=== PATIENT | female | born 2000 | race Caucasian/White ===

== ENCOUNTER 2024-12-14 00:10 | Inpatient (IN) | payer MEDICAID ==
[2024-12-14 00:23] VITALS: BMI 34.7
[2024-12-14] MEDS ORDERED: Lidocaine 1% (PF) 30 ML VIAL SC PRN (00:30)
[2024-12-14] MEDS ORDERED: Misoprostol 200 MCG TAB PR PRN (00:30)
[2024-12-14] MEDS ORDERED: Diphenoxylate HCl/Atropine Tablet PO PRN (00:30)
[2024-12-14] MEDS ORDERED: Methylergonovine 0.2 MG/ML VIAL IM PRN (00:30)
[2024-12-14] MEDS ORDERED: Acetaminophen 500 MG TAB PO PRN (00:30)
[2024-12-14] MEDS ORDERED: Tranexamic Acid 1,000 MG/10 ML VIAL IVP PRN (00:30)
[2024-12-14] MEDS ORDERED: hydrALAZINE 20 MG/ML VIAL SLOW IVP PRN ×2 (00:30→20:03)
[2024-12-14] MEDS ORDERED: Lactated Ringer's 1,000 ML IV SCH (00:30)
[2024-12-14] MEDS ORDERED: Carboprost 250 MCG/ML AMP IM PRN (00:30)
[2024-12-14] MEDS ORDERED: Oxytocin 30 units/NS 500 ML 500 ML IV SCH ×2 (00:30→20:03)
[2024-12-14 01:59] LABS: Hematocrit 39.7 % (34.9-44.5); Hemoglobin 13.5 g/dL (12.0-15.5); Mean Corpuscular Hemoglobin 31.6 pg (27.0-33.0); Mean Platelet Volume 10.5 fL (7.4-10.4); Platelet Count 261 10x3/uL (150-450); RBC Distribution Width 13.5 % (11.5-14.5); Red Blood Cell (RBC) Count 4.27 10x6/uL (3.90-5.03); White Blood Cell (WBC) Count 11.55 10x3/uL (3.5-10.5)
[2024-12-14 02:31] LABS: HBsAg Index 0.18 S/CO (0-0.99); Hep B Surf Ag - L&D Non-Reactive S/CO (NonReactive)
[2024-12-14 02:33] LABS: Syphilis Antibody Nonreactive (Nonreactive); Syphilis Antibody Index 0.05 S/CO (<1.00 Non-Reactive)
[2024-12-14] MEDS ORDERED: Bupivacaine PF 0.5% 30 ML VIAL ONE (02:33)
[2024-12-14] MEDS: Ondansetron PF 4 MG/2 ML Vial IVP PRN (03:57)
[2024-12-14] MEDS: Promethazine HCl 25 MG/ML VIAL IM PRN (07:56)
[2024-12-14] MEDS: fentaNYL 50 mcg/mL 1 mL Vial ONE (08:53)
[2024-12-14] MEDS ORDERED: Moisturizing Cream (Eucerin) 113 GM JAR TOP PRN (09:20)
[2024-12-14] MEDS ORDERED: Promethazine HCl 25 MG/ML VIAL IM PRN (09:20)
[2024-12-14] MEDS ORDERED: ePHEDrine Sulfate 50 MG/10 ML VIAL SLOW IVP PRN (09:20)
[2024-12-14] MEDS ORDERED: diphenhydrAMINE 50 MG/ML VIAL IVP PRN (09:20)
[2024-12-14] MEDS ORDERED: Naloxone HCl 0.4 mg/ml Vial IVP PRN ×2 (09:20)
[2024-12-14] MEDS ORDERED: Ondansetron PF 4 MG/2 ML Vial IVP PRN (09:20)
[2024-12-14] MEDS ORDERED: Lactated Ringer's 500 ML IV PRN (09:20)
[2024-12-14] MEDS ORDERED: Acetaminophen 325 MG TAB PO PRN (09:20)
[2024-12-14] MEDS ORDERED: Communication Order-Pharmacy FS SCH (09:30)
[2024-12-14] MEDS ORDERED: fentaNYL 2 mcg/Ropivacaine 0.2% Epidural 100 ML CADD EPIDURAL SCH (09:30)
[2024-12-14] MEDS: fentaNYL/Ropivacaine Epidural 100 ML ONE (10:25)
[2024-12-14] MEDS: Oxytocin 30 units/NS 500 ML 500 ML IV SCH (11:23)
[2024-12-14 15:48] LABS: Analyzer IN Cardio CS NICU; RapidComm Collect By cbn
[2024-12-14 15:51] LABS: Analyzer IN Cardio CS NICU; RapidComm Collect By cbn; pH (Cord, venous) 7.283 (7.250-7.350)
[2024-12-14] MEDS: Ibuprofen 800 MG TAB PO PRN (17:15)
[2024-12-14] MEDS ORDERED: Milk Of Magnesia 30 ML UDCUP PO PRN (20:03)
[2024-12-14] MEDS ORDERED: HYDROcodone/Acetaminophen 5/325 mg Tablet PO PRN ×2 (20:03)
[2024-12-14] MEDS ORDERED: Misoprostol 200 MCG TAB VAG PRN (20:03)
[2024-12-14] MEDS ORDERED: Bisacodyl 10 MG SUPP PR PRN (20:03)
[2024-12-14] MEDS ORDERED: Boostrix 0.5 ML (Tdap) VIAL (>/=7 yrs of age) IM ONE (20:03)
[2024-12-14] MEDS: Ferrous Sulfate 325 MG TAB PO SCH (20:30)
[2024-12-14] MEDS: Docusate 100 MG CAP PO SCH (21:22)
[2024-12-15] MEDS: Ibuprofen 800 MG TAB PO SCH (01:17)
[2024-12-15] MEDS: fentaNYL 50 mcg/mL 1 mL Vial SLOW IVP SCH (07:38)
[2024-12-15] MEDS: Prenatal Vitamin 1 TAB PO SCH (08:51)
[2024-12-15] MEDS: Benzocaine-Menthol 82.5 ML CAN TOP PRN (08:52)
[2024-12-15] MEDS: Ferrous Sulfate 325 MG TAB PO SCH (08:54)
[2024-12-16] MEDS ORDERED: Lidocaine 1% MPF 2 ML VIAL SC PRN (10:30)
[2024-12-16 15:46] VITALS: BP 125/69; TEMP 98
== END 2024-12-16 14:25 | disposition home or self-care (01) | DRG 807 ==
LOC: CSHERS 00:10 → CSHLD 00:30 → CSHPP 20:10
PROVIDERS: ADMIT Obstetrics & Gynecology; ATTEND Obstetrics & Gynecology
PROC: 10E0XZZ Delivery of Products of Conception, External Approach (ICD-10-PCS; principal; 2024-12-14)
PROC: 0W8NXZZ Division of Female Perineum, External Approach (ICD-10-PCS; 2024-12-14)
DX: O69.81X0 Labor and delivery complicated by cord around neck, without compression, not applicable or unspecified (principal); Z37.0 Single live birth; O48.0 Post-term pregnancy; Z90.89 Acquired absence of other organs; Z3A.40 40 weeks gestation of pregnancy
CPT/HCPCS: 36415; 51702; 82805; 85027; 86780; 86850; 86900; 86901; 87340; 99285; J0665; J2405; J2550; J2590; J3010